=== PATIENT | female | born 2000 | race Caucasian/White ===

== ENCOUNTER 2025-07-28 19:06 | Emergency (ER) | payer SELFPAY ==
[~2025-07-28] VITALS: Ht 157.5 cm; Wt 95.3 kg
[2025-07-28 20:44] LABS: BASOPHILS % 0.1 % (0.0-1.0); EOSINOPHILS % 0.6 % (0.0-6.0); LYMPHOCYTES % 19.1 % (18.0-39.1); MONOCYTES % 3.7 % (4.4-11.3); NEUTROPHILS % 74.1 % (38.7-80.0); RED CELL DISTRIBUTION WIDTH 13.9 % (11.7-14.4)
[2025-07-28] MEDS: KETOROLAC TROMETHAMINE 30 MG/ML VIAL IV STA (20:54)
[2025-07-28 21:03] LABS: EST GLOMERULAR FILTRATION RATE 131.0 ML/MIN (>=60)
[2025-07-28 23:55] VITALS: PULSE 71; RESP 20; TEMP 98.1; O2SAT 100
[2025-07-28] MEDS ORDERED: PANTOPRAZOLE SO40 MG PO (23:55)
[2025-07-28] MEDS ORDERED: ONDANSETRON ODT4 MG PO (23:55)
[2025-07-28] MEDS ORDERED: DICYCLOMINE HCL20 MG PO (23:55)
== END 2025-07-29 | disposition home or self-care (01) ==
LOC: ER 19:30
DX: O26.63 Liver and biliary tract disorders in the puerperium (principal); K83.8 Other specified diseases of biliary tract; D53.9 Nutritional anemia, unspecified
CPT/HCPCS: 36415; 71045; 76705; 80053; 83690; 84484; 85025; 93005; 99284; J1885